=== PATIENT | male | born 1975 | race Caucasian/White ===

== ENCOUNTER 2017-02-26 09:58 | Emergency (ER) | payer BC ==
[~2017-02-26] VITALS: Ht 185.4 cm; Wt 88.5 kg
[2017-02-26] MEDS ORDERED: ALLEGRA-D 24 H1 EACH PO (10:15)
[2017-02-26] MEDS ORDERED: OMEPRAZOLE20 MG PO (10:15)
[2017-02-26] MEDS ORDERED: BENTYL10 MG PO (12:51)
[2017-02-26] MEDS ORDERED: BACTRIM DS TAB1 EACH PO (12:51)
== END 2017-02-26 13:05 | disposition home or self-care (01) ==
LOC: ED 09:58
DX: K52.9 Noninfective gastroenteritis and colitis, unspecified (principal); Z79.899 Other long term (current) drug therapy
CPT/HCPCS: 74177; 80053; 81001; 82150; 83690; 85025; 96361; 96374; 99284; J2405; J7030; Q9967